=== PATIENT | female | born 1965 | race Caucasian/White ===

== ENCOUNTER 2018-07-30 17:37 | Emergency (ER) | payer OTHER ==
[2018-07-30] MEDS ORDERED: KETOROLAC TROMETHAMINE 60 MG/2 ML SDV IM ONE (18:05)
[2018-07-30] MEDS ORDERED: ACETAMINOPHEN 325 MG TABLET PO ONE (18:05)
[2018-07-30] MEDS ORDERED: IPRATROPIUM/ALBUTEROL 0.5-2.5 MG/3 ML AMPUL NEB ONE (18:05)
[2018-07-30] MEDS ORDERED: PREDNISONE 20 MG TABLET PO ONE (18:05)
--- NOTE | 2018-07-30 18:14 | ER Document Report ---
ED Flu Like - General Chief Complaint: Flu Symptoms Stated Complaint: FLU LIKE SYMPTOMS Time Seen by Provider: 07/30/18 17:56 Primary Care Provider: LIAM NEUMANN MD [Primary Care Provider] - Follow up as needed Mode of Arrival: Ambulatory Information source: Patient, [facility] Records Notes: This 52-year-old female patient comes emerged from complaining of being sick since , 07/20/2018. She was diagnosed with the flu a week ago on Tuesday at an urgent care. She continues to feel weak and lethargic with shakes and now has shortness of breath, head is pounding particularly behind her eyes and forehead. She reports her headache has been going on for about 2 days, there is some photosensitivity. She is not prone to migraine headaches. Her blood pressure has been elevated. She states she started having a yellow productive cough today. She has been taking a generic version of Delsym DM, and Mucinex Fast Max(which has phenylephrine in it and may be contributing to her elevated blood pressure). TRAVEL OUTSIDE OF THE [place] IN LAST 30 DAYS: No - Related Data Allergies/Adverse Reactions: No Known Allergies Allergy (Unverified 08/02/12 11:02) Past Medical History - General Information source: Patient, [facility] Records - Social History Smoking Status: Never Smoker Cigarette use (# per day): No Chew tobacco use (# tins/day): No Smoking Education Provided: No Frequency of alcohol use: Social Drug Abuse: None Occupation: Teacher Lives with: Family Family History: Reviewed & Not Pertinent Patient has suicidal ideation: No Patient has homicidal ideation: No - Past Medical History Cardiac Medical History: Reports: Hx Hypertension Psychiatric Medical History: Reports: Hx Depression Surgical Hx: Negative - Immunizations Hx Diphtheria, Pertussis, Tetanus Vaccination: No Review of Systems - Review of Systems Constitutional: Chills, Fever, Weakness, Other - Myalgias EENT: Nose congestion, Nose discharge Cardiovascular: No symptoms reported Respiratory: Cough, Short of breath, Wheezing Gastrointestinal: No symptoms reported Genitourinary: No symptoms reported Female Genitourinary: Post menopausal Musculoskeletal: No symptoms reported Skin: No symptoms reported Hematologic/Lymphatic: No symptoms reported Neurological/Psychological: Headaches Physical Exam - Vital signs Vitals: Temp Pulse Resp BP Pulse Ox 99.1 F 122 H 24 H 177/88 H 98 07/30/18 17:42 07/30/18 17:42 07/30/18 17:42 07/30/18 17:42 07/30/18 17:42 Interpretation: Hypertensive, Tachycardic - Notes Notes: PHYSICAL EXAMINATION: GENERAL: Well-appearing, well-nourished and in no acute distress. HEAD: Atraumatic, normocephalic. Tenderness to palpate the eyeballs, the forehead and temporal scalp muscles. She indicates most the pain is behind the eyes and forehead region. EYES: Pupils equal round and reactive to light, extraocular movements intact, sclera anicteric, conjunctiva are normal. ENT: Some nasal and sinus congestion. There is some posterior pharyngeal erythema without exudate or swelling. NECK: Normal range of motion, supple without lymphadenopathy. Headache is not made worse with neck flexion. LUNGS: Coarse breath sounds with wheezes and rhonchi on coughing. HEART: Regular rate and rhythm without murmurs. There is a mild tachycardia. ABDOMEN: Soft, nontender, normoactive bowel sounds. No guarding, no rebound. No masses appreciated. EXTREMITIES: Normal range of motion, no pitting or edema. No cyanosis. NEUROLOGICAL: Cranial nerves grossly intact. Normal speech, normal gait. Normal sensory, motor, and reflex exams. PSYCH: Normal mood, normal affect. SKIN: Warm, Dry, normal turgor, no rashes or lesions noted. Course - Re-evaluation Re-evalutation: 07/30/18 20:39 After medications for pain fever cough and wheezing, the patient is improved somewhat. She still has a lot of rhonchi and some wheezes when I have her cough. She still does have some photophobia and frontal headache. Her neck remains supple and she does not show any signs to suggest meningeal irritation. The patient's blood pressure is probably elevated more than usual due to the Mucinex Fast Max she was taking today that has phenylephrine in it. She will avoid this medication and any other uuuu-qso-wcepraw meds that can lead to elevated blood pressure. She is recommended to continue with the generic Delsym DM, and get something like the Coricidin HBP if she needs it. - Vital Signs Vital signs: Temp Pulse Resp BP Pulse Ox 98.5 F 107 H 20 146/79 H 97 07/30/18 21:05 07/30/18 21:05 07/30/18 21:05 07/30/18 21:05 07/30/18 21:05 Discharge - Discharge Clinical Impression: Influenza-like illness, Bronchitis with bronchospasm, Frontal headache High blood pressure Qualifiers: Hypertension type: essential hypertension Qualified Code(s): I10 - Essential (primary) hypertension Fever Qualifiers: Fever type: unspecified Qualified Code(s): R50.9 - Fever, unspecified Condition: Stable Disposition: HOME, SELF-CARE Additional Instructions: Viral Syndrome The physician has diagnosed a viral infection. Viruses not only cause "colds," but can cause many different symptoms including generalized aching, fever, headache, cough, diarrhea, nausea, vomiting, and fatigue. The treatment, for the most part, is simply relief of symptoms. This means that antibiotics are usually not given. Rest, fluids, pain medications and, occasionally, medication for the specific symptoms that are most bothersome will be prescribed. Use good handwashing to avoid passing the virus to others. Shared toys should be cleaned with disinfectant. Clean the toilets, sinks, and counter surfaces in bathrooms. Launder clothing in hot water. Contact the physician if you develop any new or unusual symptoms such as severe headache, stiff neck, high fever, chest pain, productive cough, or shortness of breath. You should be rechecked if you don't see marked improvement within seven to 10 days. Bronchitis with Bronchospasm (Wheezing) You have bronchitis with bronchospasm (wheezing). Sometimes people develop wheezing with a chest cold. This occurs either because of an underlying tendency toward asthma or because the virus itself irritates the bronchial tubes. This irritation causes cough, shortness of breath, and wheezing. Emergency treatment of bronchospasm may include adrenaline shots or bronchodilator aerosol. You may feel lightheaded and have a rapid pulse for an hour or two. Rest and get plenty of fluids. At home, we'll treat you with a bronchodilator inhaler. Corticosteroids may be required for some patients. Until you recover, avoid chemical fumes, dusts, pollens, and exercising in very cold or dry air. If you smoke, stop now! Most cases of bronchitis get better without antibiotics. We prescribe antibiotics when we believe bacteria are damaging your airways, or if there's high risk the bronchitis will worsen into pneumonia. Increase your fluid intake. A cool mist humidifier may make your lungs more comfortable. An expectorant (cough medicine that loosens phlegm) can help. Repeated episodes of bronchitis and bronchospasm may result in lung damage -- for example, chronic bronchitis, recurrent pneumonias, or emphysema. If you develop a fever, increased wheezing, chest pain, or severe shortness of breath, you should contact the doctor immediately. Be sure not to miss any of your blood pressure medications. Stop taking cwla-noo-wllstyj cough and cold medications that can raise your blood pressure. Take Tylenol every 4 hours for fever. Drink plenty of fluids this evening and over the next few days. Get plenty of rest and sleep. Use the inhaler-2 puffs every 4 hours for wheezing and shortness of breath. Take prednisone and the Tessalon Perles as prescribed starting tomorrow. Take the hydrocodone pain pills 1 every 4 hours tonight for headache if needed. Take 1 Zofran tablet about 10 minutes before you take the hydrocodone tablet to prevent nausea. Follow-up with your primary care provider if not improving. RETURN TO THE EMERGENCY ROOM IF ANY NEW OR WORSENING SYMPTOMS. Prescriptions: Albuterol Sulfate [Proair Hfa Inhalation Aerosol 8.5 gm Mdi] 2 puff IH ASDIR PRN #1 mdi PRN Reason: Benzonatate [Tessalon Perles 100 mg Capsule] 100 mg PO ASDIR PRN #30 capsule PRN Reason: Prednisone [Deltasone 10 mg Tablet] 10 mg PO ASDIR PRN #21 tablet PRN Reason: Forms: Return to Work Referrals: LIAM NEUMANN MD [Primary Care Provider] - Follow up as needed
[2018-07-30] MEDS ORDERED: ALBUTEROL SULFATE 0.083% NEB 2.5 MG/3 ML AMPUL NEB ONE ×2 (19:16→20:09)
[2018-07-30] MEDS ORDERED: OXYCODONE-ACETAMINOPHEN 5-325 MG TABLET PO ONE (19:36)
[2018-07-30] MEDS ORDERED: BENZONATATE 100 MG CAPSULE PO ONE ×2 (19:36→20:47)
[2018-07-30] MEDS ORDERED: ONDANSETRON 4 MG TAB.RAPDIS PO ONE (19:47)
[2018-07-30] MEDS ORDERED: HYDROCODONE/ACETAMINOPHEN 5-325 MG (6 TAB/ER DISP) PO PRN (20:48)
[2018-07-30] MEDS ORDERED: ONDANSETRON ODT 4 MG TAB (6 TAB/ER DISP) PO PRN (20:48)
[2018-07-30] MEDS ORDERED: ALBUTEROL SULFATE HFA (90 MCG/PUFF) 8 GM MDI (1 MDI/ER DISP) IH ONE (20:48)
[2018-07-30 21:07] VITALS: BP 146/79
== END 2018-07-30 21:12 | disposition home or self-care (01) ==
LOC: ER 17:37
DX: J11.1 Influenza due to unidentified influenza virus with other respiratory manifestations (principal); J40 Bronchitis, not specified as acute or chronic; R50.9 Fever, unspecified; R51 Headache; I10 Essential (primary) hypertension; R53.1 Weakness; R53.83 Other fatigue; R06.02 Shortness of breath; H53.149 Visual discomfort, unspecified; M79.10 Myalgia, unspecified site; R06.2 Wheezing; R09.81 Nasal congestion
CPT/HCPCS: 94640 ×2; 99283; 96372; J1885; S0119; J7512; J3490; J7620

== ENCOUNTER → 2018-08-10 | Outpatient (CLI) | payer OTHER ==
--- NOTE | 2018-08-10 09:15 | WOMENS IMAGING REPORT ---
EXAM DESCRIPTION: U/S ABDOMEN LIMITED COMPLETED DATE/TIME: 08/10/2018 7:42 am REASON FOR STUDY: R10.9 UNSPECIFIED ABDOMINAL PAIN R10.9 UNSPECIFIED ABDOMINAL PAIN COMPARISON: None. TECHNIQUE: Dynamic and static grayscale images acquired of the abdomen and recorded on PACS. Additio nal selected color Doppler and spectral images recorded. LIMITATIONS: None. FINDINGS: PANCREAS: No masses. Visualized pancreatic duct normal caliber. LIVER: The liver. The liver measures 16.5 cm in length, upper limits of normal. LIVER VASCULATURE: Normal directional flow of the main portal vein and hepatic veins. GALLBLADDER: Gallstone, measures 3.3 cm. This finding was identified on the CT examination dated . The gallbladder wall measures 1.7 mm, normal wall thickness. No pericholecystic fluid. ULTRASOUND-DETECTED MASTERS'S SIGN: Negative. INTRAHEPATIC DUCTS AND COMMON DUCT: CBD measures 4.3 mm in diameter, normal. The intrahepatic ducts normal caliber. No filling defects. INFERIOR VENA CAVA: Limited visualization due to overlying bowel gas. Normal flow. AORTA: Limited visualization due to overlying bowel gas. The proximal and mid abdominal aorta are p atent. The distal abdominal aorta is obscured by overlying bowel gas. RIGHT KIDNEY: The right kidney measures 12.3 x 4.4 x 6.0 cm, normal size. Normal echogenicity. No so lid or suspicious masses. No hydronephrosis. No calcifications. PERITONEAL AND RIGHT PLEURAL SPACE: No ascites or effusions. OTHER: No other significant findings. IMPRESSION: 1. Limited evaluation of the abdominal aorta and inferior vena cava due to overlying luis wel gas. 2. Gallstone, stable finding since the prior CT examination dated 08/02/2012. 3. Fatty liver. TECHNICAL DOCUMENTATION: JOB ID: [id number] [employer]- All Rights Reserved Reading location - IP/workstation name: [email or web address]
== END ==
LOC: WI 07:04
PROVIDERS: ATTEND Specialist
DX: K80.80 Other cholelithiasis without obstruction (principal); K76.0 Fatty (change of) liver, not elsewhere classified; R10.9 Unspecified abdominal pain
CPT/HCPCS: 76705